=== PATIENT | male | born 1950 | race Caucasian/White ===

== ENCOUNTER 2018-12-22 09:15 | Emergency (ER) | payer MEDICARE, OTHER ==
[2018-12-22 09:24] VITALS: RESP 18; TEMP 98.1
--- NOTE | 2018-12-22 10:18 | ED ---
General Adult HPI - General Chief complaint: Neuro Symptoms/Deficit Stated complaint: Flash of light in eye Time Seen by Provider: 12/22/18 09:21 Source: patient Mode of arrival: ambulatory Limitations: no limitations - History of Present Illness Initial comments: 68-year-old male presents emergency department for evaluation of flashes of light in the left eye patient has history of myopia. Patient denies any history of diabetes hypertension. Patient denies a headache dizziness nausea vomiting halo ring. Patient states that he then noticed a swarm of increased floaters. Patient states she has had floaters in the past. Patient denies a vision loss or curtaining of the vision. Patient denies any blurred vision. Patient states that he does have a family history of retinal detachments. Patient denies any personal history. Patient denies any history of glaucoma. Patient denies any strokelike symptoms like speech deficits, sensation deficits or strength decrease. Patient states he feels normal aside from the flashes of light that seemed to have subsided since yesterday evening and then new floaters in the left eye. Patient states he has no symptoms in the right eye as he isolated the eyes and he began experiencing the symptoms. Patient has no other positive review of systems. He appears well no signs of acute distress. VA 20/25 OD, 20/25 OS, 20/25 OU. IOP 24 OD, 19 OS. - Related Data Home Medications Medication Instructions Recorded Confirmed Ascorbic Acid [Vitamin C] 1,000 mg PO DAILY 12/22/18 12/22/18 Multivitamins, Thera [Multivitamin 1 tab PO DAILY 12/22/18 12/22/18 (formulary)] Allergies Allergy/AdvReac Type Severity Reaction Status Date / Time Penicillins Allergy Unknown Verified 12/22/18 09:29 Childhood Review of Systems ROS Statement: Those systems with pertinent positive or pertinent negative responses have been documented in the HPI. ROS Other: All systems not noted in ROS Statement are negative. Past Medical History Past Medical History: No Reported History History of Any Multi-Drug Resistant Organisms: None Reported Past Surgical History: Appendectomy Past Psychological History: No Psychological Hx Reported Smoking Status: Never smoker Past Alcohol Use History: Rare Past Drug Use History: None Reported General Exam - General Exam Comments Initial Comments: General: The patient is awake and alert, in no distress, and does not appear acutely ill. Eye: +3 mm pupils are equal, round and reactive to light, extra-ocular movements are intact. No APD. No nystagmus. There is normal conjunctiva bilaterally. No signs of icterus. OD 20/25, OS 20/25, IOP OD 24, IOP OS 19. VF intact to confrontation. No obvious floaters and vitreous humor. Limited use of retina due to no dilation however there is no obvious retinal detachment visible. Ears, nose, mouth and throat: There are moist mucous membranes and no oral lesions. Neck: The neck is supple, there is no tenderness or JVD. Cardiovascular: There is a regular rate and rhythm. No murmur, rub or gallop is appreciated. Respiratory: Lungs are clear to auscultation, respirations are non-labored, breath sounds are equal. No wheezes, stridor, rales, or rhonchi. Musculoskeletal: Normal ROM, no tenderness. Strength 5/5. Sensation intact. Pulses equal bilaterally 2+. Neurological: A&O x 3. CN II-XII intact, There are no obvious motor or sensory deficits. Coordination appears grossly intact. Speech is normal. Skin: Skin is warm and dry and no rashes or lesions are noted. Psychiatric: Cooperative, appropriate mood & affect, normal judgment. Limitations: no limitations Course Vital Signs 12/22/18 12/22/18 09:21 11:05 Temperature 98.1 F Pulse Rate 56 L 68 Respiratory 18 18 Rate Blood Pressure 157/82 129/87 O2 Sat by Pulse 98 98 Oximetry Medical Decision Making - Medical Decision Making 68yo male presented for chief fashion of light in the left eye yesterday as well as increased floaters. This was concerning for retinal attachment. Patient had 20/25 visual acuity bilaterally visual esquivel intact patient denies any curtaining current flashers or floaters since yesterday evening. Patient has history of myopia. Intraocular pressures revealed OD 24 mildly elevated and otherwise within normal limits at 19. Patient denies any healing or known history of glaucoma. I did contact ophthalmology as soon as exam was performed--I spoke directly with Dr. Ortiz discussing VA, VF, history, PMH, family history and IOPs as well as current symptoms. He recommended given no current flashes, floaters, or veiling that patient follow-up with himself on Monday and is to return to the ER if the symptoms return (did not recommend immediate retinal evaluation). I discussed this case with patient who is agreeable with discharge and return parameters-- I discussed case with Dr. Cortez who at this time i agreeable [facility] care plan and discharge. Disposition Clinical Impression: Vitreous floaters of left eye Disposition: HOME SELF-CARE Condition: Good Instructions (If sedation given, give patient instructions): Surgery for Retinal Detachment (DC) Additional Instructions: Please use medication as discussed. Please follow-up with ophthalmology on Monday as discussed. IMMEDIATE RETURN FOR RETURN OF FLASHES OF LIGHT, VEILING OR INCREASED FLOATERS. Please return to emergency room if the symptoms increase or worsen or for any other concerns. Is patient prescribed a controlled substance at d/c from ED?: No Referrals: Christina Sullivan MD [Primary Care Provider] - 1-2 days Ben Ortiz MD [STAFF PHYSICIAN] - 1-2 days Time of Disposition: 10:33
[2018-12-22 11:07] VITALS: BP 129/87; PULSE 68
== END 2018-12-22 10:50 | disposition home or self-care (01) ==
LOC: EC 09:15
DX: H43.392 Other vitreous opacities, left eye (principal); Z88.0 Allergy status to penicillin
CPT/HCPCS: 99283

== ENCOUNTER → 2020-01-28 | Outpatient (CLI) | payer MEDICARE, OTHER | END | disposition home or self-care (01) | LOC: LABWHC1 14:41 | PROVIDERS: ATTEND Internal Medicine | DX: R50.9 Fever, unspecified (principal); R05 Cough; R06.02 Shortness of breath | CPT/HCPCS: U0003; C9803 ==

== ENCOUNTER → 2021-07-27 | Outpatient (CLI) | payer MEDICARE, OTHER ==
--- NOTE | 2021-07-27 13:17 | XR ---
Left shoulder HISTORY: Left shoulder pain 3 views of the left shoulder There is no fracture or dislocation. Bone mineralization, joint spaces and alignment are maintained. There is arthropathy in the chromic clavicular joint, hypertrophic change. Left lung apex as visualiz ed is normal. Some remodeling questioned at the glenohumeral joint. IMPRESSION: Acromioclavicular joint arthropathy, shoulder MRI may be of benefit.
== END | disposition home or self-care (01) ==
LOC: RADXRYALE 10:53
PROVIDERS: ATTEND Internal Medicine
DX: M12.812 Other specific arthropathies, not elsewhere classified, left shoulder (principal)